=== PATIENT | male | born 1995 | race Caucasian/White ===

== ENCOUNTER 2018-03-22 08:00 | Emergency (ER) | payer OTHER ==
[~2018-03-22] VITALS: Ht 175.3 cm; Wt 120.2 kg
[2018-03-22 08:00] VITALS: BP 112/57
[~2018-03-22 08:00] MED LIST: AMOX1TAB61 PO; DOCU-109 PO; OXYC1TAB7 PO
--- NOTE | 2018-03-22 08:31 | PHYS DOC ---
Past Medical History Past Medical History: Abscess Past Surgical History: Tonsillectomy, Other Additional Past Surgical Histo: ABSCESS REMOVED Alcohol Use: None Drug Use: None Adult General Chief Complaint Chief Complaint: FINGER INJURY HPI HPI Patient is a 23 year old male who presents to the ER with complaints of R hand 4th digit swelling, pain, redness, and pus drainage. States he was seen at urgent care on Monday and prescribed bactrim DS and mupirocin for a spider bite , during that visit he also received a Tdap. He presents to the ER today because last night the area started to drain bloody pus. He denies any new injury. He states that the area looks better than it did on Monday. He currently denies pain unless the area is touched. Review of Systems Review of Systems Constitutional: Denies fever or chills [] Musculoskeletal: Denies back pain or joint pain [] Integument: Reports erythema, swelling, tenderness, and bloody pus drainage from abscess site on R hand 4th digit Neurologic: Denies headache, focal weakness or sensory changes [] All other systems were reviewed and found to be within normal limits, except as documented in this note. Current Medications Current Medications Current Medications Medications (Trade) Dose Ordered Sig/Aleks Start Time Stop Time Status Last Admin Dose Admin Lidocaine HCl (Xylocaine-Mpf 1% 2ml Vial) 4 ml 1X ONCE 03/22/18 09:00 03/22/18 09:01 DC 03/22/18 08:35 4 ML Allergies Allergies Allergies Coded Allergies Type Severity Reaction Last Updated Verified I S O L A T I O N *CONTACT* Allergy Unknown 04/24/17 Yes No Known Medication Allergies Allergy Unknown 04/24/17 Yes Physical Exam Physical Exam Constitutional: Well developed, well nourished, no acute distress, non-toxic appearance. [] HENT: Normocephalic, atraumatic, bilateral external ears normal, oropharynx moist, no oral exudates, nose normal. [] Eyes: PERRLA, conjunctiva normal, no discharge. [] Skin: Warm, dry; erythema and swelling noted to r hand 4th digit with abscess noted between PIP and DIP that is draining a small amount of bloody pus Extremities: No cyanosis, no clubbing, ROM intact Neurologic: Alert and oriented X 3, normal motor function, normal sensory function, no focal deficits noted. [] Psychologic: Affect normal, judgement normal, mood normal. [] Current Patient Data Vital Signs Vital Signs Date Time Temp Pulse Resp B/P (MAP) Pulse Ox O2 Delivery O2 Flow Rate FiO2 03/22/18 08:00 99.3 89 14 112/57 (75) 99 Room Air 99.3 EKG EKG [] Radiology/Procedures Radiology/Procedures [] Course & Med Decision Making Course & Med Decision Making Pertinent Labs and Imaging studies reviewed. (See chart for details) [] Staff Physician Addendum: I was working in the ER during the course of this patient's visit. I was available for consultation as needed, but I was not directly involved in the care of this patient. Dragon Disclaimer Dragon Disclaimer This electronic medical record was generated, in whole or in part, using a voice recognition dictation system. Departure Departure Impression: Primary Impression: Abscess of finger of right hand Disposition: HOME, SELF-CARE Condition: STABLE Referrals: NO PCP (PCP) Patient Instructions: Abscess, Care After Additional Instructions: Fill prescriptions and use as directed. Return to the ER in 2-3 days for wound recheck. Continue taking previous medications as prescribed. Scripts Hydrocodone Bit/Acetaminophen (HYDROCODONE-APAP 5-325 ) 1 Each Tablet 1 TAB PO PRN Q6HRS PRN for PAIN for 2 Days, #8 TAB 0 Refills Prov: LINNEA CORTÉS APRN 03/22/18 Cephalexin (CEPHALEXIN) 500 Mg Tablet 1 TAB PO QID, #40 TAB Prov: LINNEA CORTÉS APRN 03/22/18 Incision and Drainage Incision and Drainage : Site: R hand 4th digit Blade Size: 11 I & D Procedure: betadine prep Progress large amount of bloody pus was expressed from the abscess site after small incision was made. Pt tolerated procedure well. LINNEA CORTÉS APRN Mar 22, 2018 08:31 CASIMIRO CARBAJAL MD Mar 22, 2018 18:08
[2018-03-22] MEDS ORDERED: LIDOCAINE 1% PF 2 ML VIAL. INJ ONE (09:00)
[2018-03-22] MEDS ORDERED: HYDR-2758 PO (09:27)
[2018-03-22] MEDS ORDERED: CEPH500T PO (09:27)
== END 2018-03-22 09:39 | disposition home or self-care (01) ==
LOC: ER 08:00
DX: L02.511 Cutaneous abscess of right hand (principal); Z90.89 Acquired absence of other organs; Z91.041 Radiographic dye allergy status
CPT/HCPCS: 10060; 99283

== ENCOUNTER 2018-03-24 15:20 | Emergency (ER) | payer OTHER ==
[~2018-03-24] VITALS: Ht 175.3 cm; Wt 113.4 kg
[~2018-03-24 15:20] MED LIST changes: +CEPH500T PO; +HYDR-2758 PO
[2018-03-24 15:46] VITALS: BP 137/76
--- NOTE | 2018-03-24 15:50 | PHYS DOC ---
Past Medical History Past Medical History: Abscess Past Surgical History: Tonsillectomy, Other Additional Past Surgical Histo: ABSCESS REMOVED Alcohol Use: None Drug Use: None Adult General Chief Complaint Chief Complaint: WOUND RECHECK/SUTURE REMOVAL HPI HPI Patient is a 23 year old male who presents to the ER for recheck of the wound on his L hand 4th digit. Pt was seen two days ago for I&D of abscess, states that the site is doing much better and that the swelling and drainage have significantly decreased. Pt reports continuing to take bactrim and keflex as previously prescribed. Review of Systems Review of Systems Constitutional: Denies fever or chills [] Musculoskeletal: Denies back pain or joint pain [] Integument: reports healing abscess of Left 4th digit Neurologic: Denies headache, focal weakness or sensory changes [] All other systems were reviewed and found to be within normal limits, except as documented in this note. Allergies Allergies Allergies Coded Allergies Type Severity Reaction Last Updated Verified I S O L A T I O N *CONTACT* Allergy Unknown 04/24/17 Yes No Known Medication Allergies Allergy Unknown 04/24/17 Yes Physical Exam Physical Exam Constitutional: Well developed, well nourished, no acute distress, non-toxic appearance, obese. [] HENT: Normocephalic, atraumatic, bilateral external ears normal, nose normal. [] Eyes: PERRLA, conjunctiva normal, no discharge. [] Skin: Warm, dry, healing abscess with scant bloody drainage from 4th digit of R hand, decreased swelling and erythema compared to previous visit. Extremities: No tenderness, no cyanosis, no clubbing, ROM intact, no edema. [] Neurologic: Alert and oriented X 3, normal motor function, normal sensory function, no focal deficits noted. [] Psychologic: Affect normal, judgement normal, mood normal. [] Current Patient Data Vital Signs Vital Signs Date Time Temp Pulse Resp B/P (MAP) Pulse Ox O2 Delivery O2 Flow Rate FiO2 03/24/18 15:46 98.2 78 18 137/76 (96) 98 Room Air 98.2 EKG EKG [] Radiology/Procedures Radiology/Procedures [] Course & Med Decision Making Course & Med Decision Making Pertinent Labs and Imaging studies reviewed. (See chart for details) Dx: wound recheck, abscess of 4th finger of left hand Continue taking medications as previously prescribed. Tylenol or ibuprofen as needed for pain. Keep area clean and covered with bandage, cleanse the area and allow warm water to run over site for several minutes at least twice daily. Follow up with primary care doctor next week. Return to ER if symptoms worsen. Patient verbalized an understanding of home care, medications, follow-up, and return to ED instructions and was in agreement with the plan of care. [] Dragon Disclaimer Dragon Disclaimer This electronic medical record was generated, in whole or in part, using a voice recognition dictation system. Departure Departure Impression: Primary Impression: Abscess of finger of left hand Additional Impression: Encounter for wound re-check Disposition: HOME, SELF-CARE Condition: STABLE Referrals: NO PCP (PCP) Patient Instructions: Abscess, Care After Additional Instructions: Cleanse the affected area at least twice daily allowing hot water to run over the site. Continue taking your medications as previously prescribed. Follow up with your PCP next week. Return to the ER if symptoms worsen. Problem Qualifiers LINNEA CORTÉS APRN Mar 24, 2018 15:50
== END 2018-03-24 15:50 | disposition home or self-care (01) ==
LOC: ER 15:20
DX: Z48.00 Encounter for change or removal of nonsurgical wound dressing (principal); Z90.89 Acquired absence of other organs; Z91.041 Radiographic dye allergy status
CPT/HCPCS: 99281